=== PATIENT | female | born 1955 | race African-American/Black ===

== ENCOUNTER → 2018-06-07 | Outpatient (CLI) | payer BC | END | disposition home or self-care (01) | LOC: LAB 11:38 | PROVIDERS: ATTEND Internal Medicine Cardiovascular Disease | DX: I25.10 Atherosclerotic heart disease of native coronary artery without angina pectoris (principal); E78.2 Mixed hyperlipidemia | CPT/HCPCS: 80061 ==

== ENCOUNTER → 2018-08-16 | Outpatient (CLI) | payer BC ==
[2018-08-16 10:28] LABS: ALBUMIN 3.6 g/dL (3.4-5.0); CALCIUM 9.3 mg/dL (8.5-10.1); CREATININE 0.8 mg/dL (0.6-1.0); GFR 87.7; POTASSIUM 4.3 mmol/L (3.5-5.1); TOTAL BILIRUBIN 1.4 mg/dL (0.2-1.0); TOTAL PROTEIN 7.3 g/dL (6.4-8.2)
== END | disposition home or self-care (01) ==
LOC: LAB 08:40
PROVIDERS: ATTEND Internal Medicine Cardiovascular Disease
DX: I25.10 Atherosclerotic heart disease of native coronary artery without angina pectoris (principal); E78.5 Hyperlipidemia, unspecified
CPT/HCPCS: 36415; 80053; 80061

== ENCOUNTER 2020-03-17 12:29 | Emergency (ER) | payer BC ==
[~2020-03-17] VITALS: Ht 175.3 cm; Wt 82.5 kg
[2020-03-17 12:29] VITALS: BP 178/90
--- NOTE | 2020-03-17 12:56 | PHYS DOC ---
General Adult EDM: Chief Complaint: LOWER EXTREMITY SWELLING HPI: HPI: Patient is a 64-year-old female who presented to ER today for evaluation of left leg pain, patient says she was standing at her house, was painting her house when she started having cramping on her left leg. The pain was on the lateral anterior part of her left leg, not in the calf area. Patient denies any injury, denies any swelling in her leg, denies any pressure in her leg. Patient denies any chest pain, no trouble breathing. Patient said when she was walking at the house the pain was worse. However she feels much better now. Patient denies any recent travel or operation, no history of blood clot disorder. Patient was infected with COVID-19 on February 14, she was quarantined and treated at home, she recovered without a problem. Patient denies any fever today, no chest pain, no trouble breathing. Patient denies any cough. Review of Systems: Review of Systems: Constitutional: Denies fever or chills Eyes: Denies change in visual acuity HENT: Denies nasal congestion or sore throat Respiratory: Denies cough or shortness of breath Cardiovascular: Denies chest pain or edema GI: Denies abdominal pain, nausea, vomiting, bloody stools or diarrhea : Denies dysuria Musculoskeletal: Denies back pain or joint pain . Positive for left leg pain. Integument: Denies rash Neurologic: Denies headache, focal weakness or sensory changes Endocrine: Denies polyuria or polydipsia Lymphatic: Denies swollen glands Psychiatric: Denies depression or anxiety Heart Score: Risk Factors: Risk Factors: DM, Current or recent (<one month) smoker, HTN, HLP, family history of CAD, obesity. Risk Scores: Score 0 - 3: 2.5% MACE over next 6 weeks - Discharge Home Score 4 - 6: 20.3% MACE over next 6 weeks - Admit for Clinical Observation Score 7 - 10: 72.7% MACE over next 6 weeks - Early Invasive Strategies Physical Exam: PE: Constitutional: Well developed, well nourished, no acute distress, non-toxic appearance. [] HENT: Normocephalic, atraumatic, bilateral external ears normal, oropharynx moist, no oral exudates, nose normal. [] Eyes: PERRLA, EOMI, conjunctiva normal, no discharge. [] Neck: Normal range of motion, no tenderness, supple, no stridor. [] Cardiovascular:Heart rate regular rhythm, no murmur [] Lungs & Thorax: Bilateral breath sounds clear to auscultation [] Abdomen: Bowel sounds normal, soft, no tenderness, no masses, no pulsatile masses. [] Skin: Warm, dry, no erythema, no rash. [] Back: No tenderness, no CVA tenderness. [] Extremities: No tenderness, no cyanosis, no clubbing, ROM intact, no edema. [] There is no swelling or tenderness to palpation on the left leg. There is no calf tenderness, both her legs were equal , symmetrical bilaterally, there is no redness, no swelling. Neurologic: Alert and oriented X 3, normal motor function, normal sensory function, no focal deficits noted. [] Psychologic: Affect normal, judgement normal, mood normal. [] EKG: EKG: [] Radiology/Procedures: Radiology/Procedures: [] Course & Med Decision Making: Course & Med Decision Making Pertinent Labs and Imaging studies reviewed. (See chart for details) Patient is a 64-year-old female who was evaluated in the ER due to a brief episode of cramping in her left leg. The pain was not in her calf but on the lateral part of the anterior part of her left leg. Patient denies any pain at this time. Patient denies any swelling, no redness in her leg. Patient denies any chest pain or any trouble breathing. Patient denies any recent travel or operation. Patient had no previous history of blood clot disorder. On exami nation both of her legs appeared to be symmetrical equal, no swelling, no redness, no evidence of DVT. There is no tenderness to palpation in her calf. There were strong distal dorsalis pedal pulses bilaterally. Patient is in no acute distress. There is no further diagnostic work-up needed at this time. Patient was standing on her feet, painting her house when she started having the cramping and the symptom resolved at this time. It Is unlikely that patient has blood clot in her leg. Dragon Disclaimer: Dragon Disclaimer: This electronic medical record was generated, in whole or in part, using a voice recognition dictation system. Departure Departure: Impression: Primary Impression: Leg cramping Disposition: HOME, SELF-CARE Condition: STABLE Referrals: PCP,NO (PCP) FOLLOW UP WITH YOUR DOCTOR NEEDED. Patient Instructions: Leg Cramps ARABELLA CLIFTON DO March 17, 2020 12:56
== END 2020-03-17 13:02 | disposition home or self-care (01) ==
LOC: ER 12:29
DX: G47.62 Sleep related leg cramps (principal); M79.605 Pain in left leg
CPT/HCPCS: 99281

== ENCOUNTER → 2021-01-23 | Outpatient (CLI) | payer BC ==
[2021-01-23 12:59] LABS: CALCIUM 9.5 mg/dL (8.5-10.1); CREATININE 0.8 mg/dL (0.6-1.0); GFR 87.1; POTASSIUM 4.6 mmol/L (3.5-5.1)
[2021-01-24 03:11] LABS: HEMOGLOBIN A1C 7.1 % (4.8-5.6)
== END ==
LOC: LAB 10:58
PROVIDERS: ATTEND Family Medicine
DX: E11.9 Type 2 diabetes mellitus without complications (principal); E78.5 Hyperlipidemia, unspecified
CPT/HCPCS: 36415; 80048; 82465; 83036

== ENCOUNTER → 2021-04-05 | Outpatient (CLI) | payer BC | LOC: LAB 09:57 | PROVIDERS: ATTEND Internal Medicine Cardiovascular Disease | DX: R53.83 Other fatigue (principal) | CPT/HCPCS: 84443 ==